=== PATIENT | male | born 1990 | race Caucasian/White ===

== ENCOUNTER 2021-07-04 18:14 | Emergency (ER) | payer BC, SELFPAY ==
[2021-07-04 19:14] VITALS: BP 151/89; PULSE 76; RESP 16; TEMP 36.3; O2SAT 98; BMI 37.1
--- NOTE | 2021-07-04 19:40 | HMH.EDUTC ---
[facility] [place] Disposition Clinical Impression: Left arm cellulitis Disposition: Home, Self-Care Condition on Discharge: Good Instructions: DI for Cellulitis -- Adult Additional Instructions: Keep the affected area clean and dry. Follow up with your regular doctor within 2 days for a recheck of this wound. Take the antibiotics as directed and apply the topical antibiotics as directed. Apply warm wet compresses to the affected area three or four times per day. GO TO THE ER FOR ANY WORSENING SYMPTOMS Prescriptions: Sulfamethoxazole/Trimethoprim [Bactrim DS tablet] 1 each PO BID 10 Days #20 tab Transmission Status: Received by [id number] Mupirocin [Bactroban 2% Ointment 22gm tube] 1 applicatio TP TID 7 Days #1 gm Transmission Status: Received by [id number] cephALEXin [cephALEXin 500mg capsule] 500 mg PO Q6H 10 Days #40 cap Transmission Status: Received by [facility] predniSONE [Deltasone 10mg tablet] 10 mg PO BID 3 Days #6 tab Transmission Status: Received by [id number] Referrals: Austin Pabon MD [Primary Care Provider] - Time of Disposition: 19:50 Medical Decision Making - Medical Records Medical records reviewed: No: I reviewed the patient's medical records. - Russel Inquiry Pt receiving controlled substance: No Vital Signs: 07/04/21 19:14 07/04/21 19:50 Temperature 97.4 F L 97.4 F L Temperature Source Oral Pulse Rate 76 Pulse Rate [Left] 76 Respiratory Rate 16 16 Blood Pressure 151/89 H Blood Pressure [Right Arm] 151/89 H Blood Pressure Mean [Right Arm] 109 02 Sat by Pulse Oximetry 98 Orders (Tests/Meds): ED MEDICATIONS Discontinued Medications Generic Name Dose Route Start Last Admin Trade Name Freq PRN Reason Stop Dose Admin Cephalexin HCl 500 mg 07/04/21 19:45 07/04/21 19:49 Cephalexin 500mg Capsule PO 07/04/21 19:46 500 mg ONCE ONE Administration Prednisone 20 mg 07/04/21 19:44 07/04/21 19:49 Prednisone 20mg Tab PO 07/04/21 19:45 20 mg ONCE ONE Administration [facility] [place] HPI - General Stated complaint: left underarm tricep rash and pain Time Seen by Provider: 07/04/21 19:40 Mode of Arrival: Ambulatory Source of Information: Patient Limitations: No Limitations Description of Symptoms (Recalled from Triage Doc. by RN): pt states he has a rash on L tricep that is painful. pt has a red, raised warm area that is one large blotch. HEENT Symptoms (Recalled from RN notes): No Resp Symptoms (Recalled from RN notes): No Skin Symptoms (Recalled from RN notes): Yes (rash on L tricep) MS Symptoms (Recalled from RN notes): No Functional Status (Recalled from RN notes): na - History of Present Illness Provider Complaint: He states that since yesterday he has had a red area on the back of his left arm. He states that he has not had any stings or bug bites. He feels fine and denies any fever or chills. He denies any injury. - Related Data Previous Rx's Medication Instructions Recorded Mupirocin [Bactroban 2% Ointment 1 applicatio TP TID 7 Days #1 gm 07/04/21 22gm tube] Sulfamethoxazole/Trimethoprim 1 each PO BID 10 Days #20 tab 07/04/21 [Bactrim DS tablet] cephALEXin [cephALEXin 500mg 500 mg PO Q6H 10 Days #40 cap 07/04/21 capsule] predniSONE [Deltasone 10mg tablet] 10 mg PO BID 3 Days #6 tab 07/04/21 Allergies Allergy/AdvReac Type Severity Reaction Status Date / Time No Known Allergies Allergy Verified 03/11/18 02:43 - Worker's Comp Is this a Worker's Comp case?: No [facility] History - Hepatitis A Screen Drug use history?: No High risk sexual behaviors?: No History of sexually transmitted infection?: No Currently employed?: No Childcare worker?: No Do you have indoor plumbing?: Yes Do you have electricity?: Yes Attestation statement:: This patient has been screened for Hepatitis A risk factors. I have reviewed the patient's past medical history: Yes Medical History:
[2021-07-04 19:50] VITALS: BP 151/89; PULSE 76; RESP 16; TEMP 36.3
== END 2021-07-04 20:10 | disposition home or self-care (01) ==
PROVIDERS: Emergency Provider Nurse Practitioner Family; PCP Family Medicine
DX: L03.114 Cellulitis of left upper limb (principal)
CPT/HCPCS: 99202; G0463

== ENCOUNTER → 2022-12-24 13:16 | Outpatient (CLI) | payer BC, SELFPAY ==
[2022-12-24 12:57] LABS: Basophils # 0.1 K/mm3 (0-0.2); Basophils % 0.9 % (0.1-2.0); Eosinophils # 0.3 K/mm3 (0.0-0.4); Eosinophils % 2.9 % (0.1-12.0); Hemoglobin 16.2 g/dL (14.1-18.0); Lymphocytes # 3.2 K/mm3 (0.7-4.5); Lymphocytes % 32.5 % (10-50); Mean Corpuscular HGB Conc 33.8 g/dL (31.8-35.4); Mean Corpuscular Hemoglobin 31.1 pg (27.0-31.2); Mean Platelet Volume 7.9 fl (7.4-10.4); Monocytes # 0.7 K/mm3 (0.1-1.0); Monocytes % 6.9 % (1.7-9.3); Neutrophils # 5.7 K/mm3 (1.8-7.8); Neutrophils % 56.8 % (37.0-80.0); Platelet Count 357 K/mm3 (142-424); Red Blood Count 5.22 M/mm3 (4.60-6.20); Red Cell Distribution Width 13.1 % (11.5-17.5)
[2022-12-24 12:59] LABS: Alanine Aminotransferase 60 U/L (12-78); Albumin Level 4.5 g/dl (3.5-5.0); Albumin/Globulin Ratio 1.5 (1.1-1.8); Alkaline Phosphatase 91 U/L (38-126); Anion Gap 13.3 mEq/L (5-15); Aspartate Amino Transferase 38 U/L (17-59); Bilirubin,Total 0.7 mg/dl (0.2-1.3); Blood Urea Nitrogen 20 mg/dl (9-20); Calcium 9.6 mg/dl (8.4-10.2); Carbon Dioxide 28 mmol/L (22.0-30.0); Chloride 101 mmol/L (98-107); Chol/HDL Ratio 4.5 (1-3.5); Cholesterol 262 mg/dl (140-200); Estimated Glomerular Filt Rate 111 ml/min (>60); GFR (African American) 135 ML/MIN (>60); Glucose 92 mg/dl (74-100); HDL Cholesterol 58 mg/dl (40-60); Potassium 4.3 mmoL/L (3.5-5.1); Sodium 138 mmol/L (136-145); Total Protein,Serum 7.5 g/dl (6.3-8.2); Triglycerides 163 mg/dl (30-150); VLDL Cholesterol 33 mg/dL (0-40)
[2022-12-24 13:17] LABS: 25-OH Vitamin D, Total 15.7 ng/mL (30-100)
[2022-12-24 13:21] LABS: Direct LDL Cholesterol 162.63 mg/dL (100-129)
[2022-12-24 13:31] LABS: Thyroid Stimulating Hormone 1.16 uIU/mL (0.465-4.68)
[2022-12-24 13:33] LABS: Hemoglobin A1C 5.1 % (4.0-6.0)
[2022-12-24 13:49] LABS: Vitamin B12 461 pg/mL (239-931)
[2022-12-25 08:22] LABS: Testosterone,Total 380 ng/dL (264-916)
== END ==
PROVIDERS: PCP Physician Assistant; Visit Provider Physician Assistant
DX: R53.83 Other fatigue (principal); E55.9 Vitamin D deficiency, unspecified; E66.9 Obesity, unspecified; Z68.38 Body mass index [BMI] 38.0-38.9, adult; Z79.899 Other long term (current) drug therapy; R06.89 Other abnormalities of breathing
CPT/HCPCS: 80053; 80061; 82306; 82607; 83036; 84403; 84443; 85025

== ENCOUNTER → 2023-02-15 10:43 | Outpatient (CLI) | payer BC, SELFPAY ==
[2023-02-15 11:24] LABS: Basophils # 0.1 K/mm3 (0-0.2); Basophils % 0.8 % (0.1-2.0); Eosinophils # 0.3 K/mm3 (0.0-0.4); Eosinophils % 3.3 % (0.1-12.0); Hematocrit 45.8 % (42.0-52.0); Hemoglobin 15.4 g/dL (14.1-18.0); Lymphocytes # 3.2 K/mm3 (0.7-4.5); Lymphocytes % 34.6 % (10-50); Mean Corpuscular HGB Conc 33.7 g/dL (31.8-35.4); Mean Corpuscular Hemoglobin 30.3 pg (27.0-31.2); Mean Corpuscular Volume 89.8 fl (80-94); Mean Platelet Volume 7.6 fl (7.4-10.4); Monocytes # 0.7 K/mm3 (0.1-1.0); Monocytes % 7.5 % (1.7-9.3); Neutrophils % 53.8 % (37.0-80.0); Platelet Count 313 K/mm3 (142-424); Red Blood Count 5.09 M/mm3 (4.60-6.20); Red Cell Distribution Width 12.8 % (11.5-17.5); White Blood Count 9.3 K/mm3 (4.8-10.8)
[2023-02-15 12:03] LABS: Anion Gap 14.2 mEq/L (5-15); Blood Urea Nitrogen 17 mg/dl (9-20); Calcium 9.3 mg/dl (8.4-10.2); Carbon Dioxide 28 mmol/L (22.0-30.0); Chloride 104 mmol/L (98-107); Estimated Glomerular Filt Rate 111 ml/min (>60); GFR (African American) 135 ML/MIN (>60); Glucose 90 mg/dl (74-100); Potassium 4.2 mmoL/L (3.5-5.1); Sodium 142 mmol/L (136-145)
== END ==
PROVIDERS: Visit Provider Surgery
DX: Z01.812 Encounter for preprocedural laboratory examination (principal); L72.3 Sebaceous cyst
CPT/HCPCS: 36415; 80048; 85025

== ENCOUNTER 2023-02-28 07:12 | Day surgery (SDC) | payer BC, SELFPAY ==
[2023-02-24 13:04] VITALS: BMI 39.0
[2023-02-28] VITALS (10 sets, daily range): BP systolic 140–157; BP diastolic 80–103; PULSE 73–90; RESP 15–18; TEMP 36.1–36.6; O2SAT 94–99
--- NOTE | 2023-02-28 07:51 | EXP.ANES.CKL ---
[facility] Disclaimer: The information contained in this section may have been updated after the patient was seen, as this information can be updated by other users. Medical History Asthma History of COVID-19 Hyperlipidemia Surgical History No significant past surgical history Family History Other No significant family history Social History Smoking Status: Never smoker alcohol intake: current substance use type: denies use current occupational status: employed Travel in the last 8 weeks: None [facility] Anesthesia Checklist Patient Identification Patient Identification: Arm Band and Verbal (Name & ) Structural Data Admitted From: Home Planned Operative Procedure/s: Excision of sebaceous cyst Consent for Planned Operative Procedure(s) Verified: Yes NPO Status Verified Time NPO: 00:00 Chart Verification Results Verified: CBC and BMP Additional verifications Anesthesia Reactions: No Hx Blood Transfusions: No Blood Transfusion Reaction: No Airway Assessment C-Spine Mobility Assessed: Yes TMJ Mobility Assessed: Yes Dentition: Good Dentition Neurological Assessment Level of Consciousness: Awake Hx Seizures: No Numbness or tingling in extremities: No Anesthesia Plan Anesthesia Risk discussed: Yes Anesthesia Plan: Verified ASA Class: II Anesthesia Type: General
--- NOTE | 2023-02-28 09:43 | EXP.OP.NOTE ---
Date of procedure: 02/28/23 Pre-op Diagnosis:: Sebaceous cyst on the back Post-op Diagnosis:: Same Procedure performed:: Excision of sebaceous cyst from the back. Excisional length 3.0 cm with intermediate complexity closure Surgeon:: John Mahoney MD PAY STATION DEPARTMENT MANAGER:: Duong Ayala Anesthesia: LMA Estimated blood loss (mL): 10 Operative findings:: Consistent with noninfected sebaceous cyst Operative note:: Patient was taken the operating room. He was given preoperative intravenous antibiotics. Anesthesia was induced via LMA. He was positioned in right lateral decubitus position. The area was prepped and draped in the standard surgical fashion. Skin was marked with a skin marker for planned elliptical incision as there was some central area of fluctuance at the site of the skin punctum. Incision was made. The superficial cyst wall was rather thin and friable and likely previously ruptured. There was some unavoidable spillage of caseous keratin debris which was foul-smelling but noninfected. With careful dissection the cyst capsule was able to be resected with disruption at the superficial point with the overlying skin ellipse. Wound was irrigated. Hemostasis was achieved with electrocautery. Additional local anesthetic was infiltrated. Deep dermal tissue was reapproximated with interrupted 3-0 Vicryl. Skin was closed with interrupted 4-0 nylon. Clean dry sterile dressing was applied. Condition: stable Disposition: PACU Complications:: None immediate
--- NOTE | 2023-02-28 09:48 | EXP.ANES.I ---
[facility] Anesthesia Record Part I Anesthesia Record I Intake, IV Amount: 800 Estimated blood loss (mL): 5 Urine output (mL): 0 Blood Products used (#): none Blood Pressure: 147/80 SaO2: 94 Pulse Rate: 90 Respiratory Rate: 16 Temperature: 97.6 F Patient is:: Drowsy and Stable Stable to PACU at:: 09:45
--- NOTE | 2023-02-28 13:59 | EXP.ANES.II ---
[facility] Anesthesia Record Part II Anesthesia Record Part II Discharge Time: 10:15 Destination: Surgical Day Care (OP Surgery) PACU nurse assessment reviewed?: Yes Patient Condition:: Good Anesthesia Complications:: None Swallowing reflex intact?: Yes Cyanosis?: No Blood Pressure: 140/91 Pulse Rate: 78 Temperature: 97.9 F Mental Status: Alert & Oriented Pain level:: 0 Nausea and/or vomitting:: None Intake, IV Amount: 0
== END 2023-02-28 10:46 | disposition home or self-care (01) ==
PROVIDERS: Visit Provider Surgery
PROC: (CPT 11403; principal; 2023-02-28 09:00)
DX: L72.0 Epidermal cyst (principal)
CPT/HCPCS: 11403; 12032; 96374; J2405

== ENCOUNTER 2023-10-20 12:34 | Outpatient (CLI) | payer BC, SELFPAY ==
[2023-10-20 12:46] LABS: Basophils # 0.1 K/mm3 (0-0.2); Basophils % 0.6 % (0.1-2.0); Eosinophils # 0.4 K/mm3 (0.0-0.4); Eosinophils % 4.7 % (0.1-12.0); Hematocrit 49.2 % (42.0-52.0); Hemoglobin 16.1 g/dL (14.1-18.0); Lymphocytes # 3.5 K/mm3 (0.7-4.5); Lymphocytes % 39.3 % (10-50); Mean Corpuscular HGB Conc 32.6 g/dL (31.8-35.4); Mean Corpuscular Hemoglobin 31.4 pg (27.0-31.2); Mean Platelet Volume 8.1 fl (7.4-10.4); Monocytes # 0.5 K/mm3 (0.1-1.0); Monocytes % 5.7 % (1.7-9.3); Neutrophils # 4.4 K/mm3 (1.8-7.8); Neutrophils % 49.7 % (37.0-80.0); Platelet Count 310 K/mm3 (142-424); Red Blood Count 5.13 M/mm3 (4.60-6.20); Red Cell Distribution Width 13.3 % (11.5-17.5); White Blood Count 8.8 K/mm3 (4.8-10.8)
[2023-10-20 13:28] LABS: Alanine Aminotransferase 38 U/L (12-78); Albumin Level 4.2 g/dl (3.5-5.0); Albumin/Globulin Ratio 1.7 (1.1-1.8); Alkaline Phosphatase 80 U/L (38-126); Anion Gap 10.8 mEq/L (5-15); Aspartate Amino Transferase 30 U/L (17-59); Bilirubin,Total 0.9 mg/dl (0.2-1.3); Blood Urea Nitrogen 14 mg/dl (9-20); Calcium 9.5 mg/dl (8.4-10.2); Carbon Dioxide 27 mmol/L (22.0-30.0); Chloride 104 mmol/L (98-107); Chol/HDL Ratio 4.7 (1-3.5); Cholesterol 242 mg/dl (140-200); Estimated Glomerular Filt Rate 111 ml/min (>60); GFR (African American) 134 ML/MIN (>60); Globulin 2.5 g/dL (1.3-3.2); Glucose 87 mg/dl (74-100); HDL Cholesterol 51 mg/dl (40-60); Potassium 3.8 mmoL/L (3.5-5.1); Sodium 138 mmol/L (136-145); Total Protein,Serum 6.7 g/dl (6.3-8.2); Triglycerides 118 mg/dl (30-150); VLDL Cholesterol 24 mg/dL (0-40)
[2023-10-20 13:39] LABS: Direct LDL Cholesterol 135.98 mg/dL (100-129)
[2023-10-20 13:47] LABS: 25-OH Vitamin D, Total 27.3 ng/mL (30-100)
[2023-10-20 13:59] LABS: Thyroid Stimulating Hormone 2.13 uIU/mL (0.465-4.68)
[2023-10-20 14:18] LABS: Vitamin B12 645 pg/mL (239-931)
== END 2023-10-20 23:59 ==
LOC: LAB.DROPOF 12:34
PROVIDERS: PCP Family Medicine; Visit Provider Family Medicine
DX: E55.9 Vitamin D deficiency, unspecified (principal); E78.5 Hyperlipidemia, unspecified; F41.9 Anxiety disorder, unspecified; R07.9 Chest pain, unspecified; Z79.899 Other long term (current) drug therapy
CPT/HCPCS: 80053; 80061; 82306; 82607; 84443; 85025

== ENCOUNTER 2024-02-07 09:56 | Outpatient (CLI) | payer BC, SELFPAY ==
[2024-02-07 18:11] LABS: Basophils # 0.1 K/mm3 (0-0.2); Basophils % 0.9 % (0.1-2.0); Eosinophils # 0.4 K/mm3 (0.0-0.4); Eosinophils % 3.7 % (0.1-12.0); Hematocrit 48.1 % (42.0-52.0); Hemoglobin 15.9 g/dL (14.1-18.0); Lymphocytes # 2.1 K/mm3 (0.7-4.5); Mean Corpuscular HGB Conc 33.1 g/dL (31.8-35.4); Mean Corpuscular Hemoglobin 31.2 pg (27.0-31.2); Mean Corpuscular Volume 94.2 fl (80-94); Mean Platelet Volume 8.7 fl (7.4-10.4); Monocytes # 0.5 K/mm3 (0.1-1.0); Monocytes % 5.4 % (1.7-9.3); Neutrophils # 6.5 K/mm3 (1.8-7.8); Neutrophils % 68.1 % (37.0-80.0); Platelet Count 296 K/mm3 (142-424); Red Cell Distribution Width 13.3 % (11.5-17.5); White Blood Count 9.6 K/mm3 (4.8-10.8)
[2024-02-07 18:35] LABS: Alanine Aminotransferase 35 U/L (12-78); Albumin Level 4.5 g/dl (3.5-5.0); Albumin/Globulin Ratio 1.7 (1.1-1.8); Alkaline Phosphatase 75 U/L (38-126); Anion Gap 15.1 mEq/L (5-15); Aspartate Amino Transferase 29 U/L (17-59); Bilirubin,Total 0.7 mg/dl (0.2-1.3); Blood Urea Nitrogen 14 mg/dl (9-20); Calcium 9.5 mg/dl (8.4-10.2); Carbon Dioxide 27 mmol/L (22.0-30.0); Chloride 103 mmol/L (98-107); Chol/HDL Ratio 4.2 (1-3.5); Cholesterol 211 mg/dl (140-200); Estimated Glomerular Filt Rate 111 ml/min (>60); GFR (African American) 134 ML/MIN (>60); Globulin 2.6 g/dL (1.3-3.2); Glucose 89 mg/dl (74-100); HDL Cholesterol 50 mg/dl (40-60); Potassium 4.1 mmoL/L (3.5-5.1); Sodium 141 mmol/L (136-145); Total Protein,Serum 7.1 g/dl (6.3-8.2); Triglycerides 131 mg/dl (30-150); VLDL Cholesterol 26 mg/dL (0-40)
[2024-02-07 18:46] LABS: Direct LDL Cholesterol 124.37 mg/dL (100-129); Erythrocyte Sedimentation Rate 5 mm/hr (0-15)
[2024-02-07 18:47] LABS: 25-OH Vitamin D, Total 31.5 ng/mL (30-100)
[2024-02-07 19:04] LABS: Thyroid Stimulating Hormone 0.79 uIU/mL (0.465-4.68)
[2024-02-07 20:37] LABS: Vitamin B12 755 pg/mL (239-931)
[2024-02-07 21:33] LABS: Folate 7.11 ng/mL
== END 2024-02-07 23:59 | disposition home or self-care (01) ==
LOC: LAB.DROPOF 02-08 09:56
PROVIDERS: PCP Internal Medicine; Visit Provider Internal Medicine
DX: E78.5 Hyperlipidemia, unspecified (principal); R53.83 Other fatigue; E55.9 Vitamin D deficiency, unspecified; Z68.34 Body mass index [BMI] 34.0-34.9, adult; E66.9 Obesity, unspecified
CPT/HCPCS: 80050; 80053; 80061; 82306; 82607; 82746; 83036; 84443; 85025; 85651

== ENCOUNTER 2025-02-04 15:55 | Outpatient (CLI) | payer BC, SELFPAY ==
[2025-02-04 18:10] LABS: Basophils # 0.1 K/mm3 (0-0.2); Basophils % 1.2 % (0.1-2.0); Eosinophils # 0.4 Kmm3 (0.0-0.4); Eosinophils % 4.3 % (0.1-12.0); Hematocrit 44.7 % (42.0-52.0); Hemoglobin 14.9 g/dL (14.1-18.0); Immature Granulocytes # 0.04 10^3uL; Immature Granulocytes % 0.5 %; Lymphocytes # 2.7 K/mm3 (0.7-4.5); Lymphocytes % 31.1 % (10-50); Mean Corpuscular HGB Conc 33.3 g/dL (31.8-35.4); Mean Corpuscular Hemoglobin 30.5 pg (27.0-31.2); Mean Corpuscular Volume 91.4 fl (80-94); Mean Platelet Volume 10.1 fl (7.4-10.4); Monocytes # 0.9 K/mm3 (0.1-1.0); Monocytes % 9.9 % (1.7-9.3); Neutrophils # 4.6 K/mm3 (1.8-7.8); Nucleated Red Blood Cells # 0 10^3/uL; Nucleated Red Blood Cells % 0 %; Platelet Count 313 K/mm3 (142-424); Red Blood Count 4.89 M/mm3 (4.60-6.20); Red Cell Distribution Width 12.2 % (11.5-17.5); Red Cell Distribution Width-SD 40.8 fL; White Blood Count 8.6 K/mm3 (4.8-10.8)
[2025-02-04 19:35] LABS: 25-OH Vitamin D, Total 35.6 ng/mL (30-100)
[2025-02-04 20:03] LABS: Alanine Aminotransferase 55 U/L (12-78); Albumin Level 4.4 g/dl (3.5-5.0); Anion Gap 9.2 mEq/L (5-15); Aspartate Amino Transferase 35 U/L (17-59); Bilirubin,Total 0.5 mg/dl (0.2-1.3); Calcium 9.4 mg/dl (8.4-10.2); Carbon Dioxide 26 mmol/L (22.0-30.0); Chloride 106 mmol/L (98-107); Globulin 2.8 g/dL (1.3-3.2); Glucose 85 mg/dl (74-100); Potassium 4.2 mmoL/L (3.5-5.1); Sodium 137 mmol/L (136-145); Total Protein,Serum 7.2 g/dl (6.3-8.2)
[2025-02-04 20:04] LABS: Albumin/Globulin Ratio 1.6 (1.1-1.8); Alkaline Phosphatase 83 U/L (38-126); Chol/HDL Ratio 4.6 (1-3.5); Cholesterol 273 mg/dl (140-200); HDL Cholesterol 59 mg/dl (40-60); Triglycerides 181 mg/dl (30-150); VLDL Cholesterol 36 mg/dL (0-40)
[2025-02-04 20:15] LABS: Direct LDL Cholesterol 183.35 mg/dL (100-129)
[2025-02-04 20:26] LABS: Blood Urea Nitrogen 18 mg/dl (9-20); Estimated Glomerular Filt Rate 96 ml/min (>60); GFR (African American) 116 ML/MIN (>60)
--- OUTSIDE RECORDS SUMMARY | 2025-02-05 14:33 | XMS_ITS | Clinical Summary ---
Author Organization [facility] Address [address] [place] [id number] Phone [email or web address] Care Team Providers Care Early Head Start Teacher Name Role Phone Unavailable Primary Care Provider Unavailabl e Allergies No known active allergies Medications No known medications Active Problems No known active problems Immunizations Immunization Administration Dates Next Due COVID-19 (Pfizer [place] 12 yrs+) (CVX-208) 021,09/18/2020 Social History Tobacco Use Types Packs/Day Years Used Date Smoking Tobacco: Never Assessed Intimate Partner Violence Answer Date R ecorded Insults You Not on file 12/09/2020 Threatens You Not on file 12/09/2020 Screams at You Not on file 12/09/2020 Physically Hurt Not on file 12/09/2020 Intimate Partner Violence Score Not on file 12/09/2020 Stress Answer Date Recorded Stress in your Life Not on file 07/02/2024 Dealing with Stress 3 07/02/2024 Sex and Gender Information Value Date Recorded Sex Assigned at Not on file Legal Sex Male 7:58 AM CDT Gender Identity Not on file Sexual Orientation Not on file Last Filed Vital Signs Vital Sign Reading Time Taken Comments Blood Pressure 125/82 03/22/2018 3:45 PM EDT Pulse 87 03/22/2018 3:45 PM EDT Temperature 37.3 C (99.2 F) 03/22/2018 3:45 PM EDT Respiratory Rate 16 03/22/2018 3:45 PM EDT Oxygen Saturation 99% 03/22/2018 3:45 PM EDT Inhaled Oxygen Concentration - - Weight 88.9 kg (196 lb) 03/22/2018 3:45 PM EDT Height 170.2 cm (5' 7 ) 03/22/2018 3:45 PM EDT Body Mass Index 30.7 03/22/2018 3:45 PM EDT Plan of Treatment Health Maintenance Due Date Last Done Comments Dental Cleaning/Exam 1989 HIV Screening 1989 Hepatitis C Screening 1989 Annual Preventive Exam 2007 Hep B Infection Screening - Triple Screen 2007 Covid-19 Immunization ( season) 2024 08/26/2021, 10/10/2020, 09/18/2020 Influenza Immunization (Season Ended) 2025 Tetanus Diphtheria and Pertussis Immunization (2 - Td or Tdap) 03/11/2028 03/11/2018 Hepatitis B Immunization Completed 000, 04/17/1999, 03/13/1999 HIB Immunization Aged Out No longer e ligible based on patient's age to complete this topic HPV Immunization Aged Out No longer e ligible based on patient's age to complete this topic Hepatitis A Immunization Aged Out No longer eligible based on patient's age to complete this topic Pneumococcal: Ped (0 to 5 Yrs) and At-Risk Member (6 to 64 Yrs) Aged Out No longer eligible b ased on patient's age to complete this topic Polio Immunization Aged Out No longer eligible based on patient's age to complete this topic Varicella Immunization Aged Out No lo nger eligible based on patient's age to complete this topic Insurance OPT OUT NO COPAY NB [address] [id number]
== END 2025-02-04 23:59 | disposition home or self-care (01) ==
LOC: LAB.DROPOF 02-05 14:29
PROVIDERS: PCP Family Medicine; Visit Provider Family Medicine
DX: E66.811 Obesity, class 1 (principal); E78.2 Mixed hyperlipidemia
CPT/HCPCS: 80053; 80061; 82306; 83036; 84443; 85025

== ENCOUNTER 2025-06-07 10:10 | Outpatient (CLI) | payer BC, SELFPAY ==
[2025-06-07 21:48] LABS: Anion Gap 16.4 mEq/L (5-15); Blood Urea Nitrogen 15 mg/dl (9-20); Calcium 9.4 mg/dl (8.4-10.2); Carbon Dioxide 27 mmol/L (22.0-30.0); Chloride 101 mmol/L (98-107); Cholesterol 172 mg/dl (140-200); Creatinine,Serum 0.80 mg/dl (0.66-1.25); Estimated Glomerular Filt Rate 110 ml/min (>60); GFR (African American) 133 ML/MIN (>60); Glucose 86 mg/dl (74-100); HDL Cholesterol 51 mg/dl (40-60); Potassium 4.4 mmoL/L (3.5-5.1); Sodium 140 mmol/L (136-145); Triglycerides 150 mg/dl (30-150)
--- OUTSIDE RECORDS SUMMARY | 2025-06-10 10:21 | XMS_ITS | Clinical Summary ---
Author Organization [facility] Address [address] [place] [phone] Phone [email or web address] Care Team Providers Care Production Engineer Track Name Role Phone Unavailable Primary Care Provider Unavailabl e Allergies No known active allergies Medications No known medications Active Problems No known active problems Immunizations Immunization Administration Dates Next Due COVID-19 (Pfizer [place] 12 yrs+) ([id number]-208) 021,09/18/2020 Social History Tobacco [...] HIV Screening 1989 Hepatitis C Screening 1989 HPV Immunization (1 - Male 3-dose series) 2004 Annual Preventive Exam 2007 Hep B Infection Screening - Triple Screen 2007 Covid-19 Immunization (4 - season) 2025 08/26/2021, 10/10/2020, 09/18/2020 Influenza Immunization (#1) 2025 Tetanus Diphtheria and Pertussis Immunization (2 - Td or Tdap) 03/11/2028 03/11/2018 Hepatitis B Immunization Completed 000, 04/17/1999, 03/13/1999 HIB Immunization Aged Out No longer e ligible based on patient's age to complete this topic Hepatitis A Immunization Aged Out No longer eligible based on patient's age to complete this topic Pneumococcal Immunization Aged Out No longer eligible based on patient's age to complete this topic Polio Immunization Aged Out No longer eligible based on patient's age to complete this topic Varicella Immunization Aged Out No lo nger eligible based on patient's age to complete this topic Insurance OPT OUT NO COPAY NB
== END 2025-06-07 23:59 ==
LOC: LAB.DROPOF 06-10 10:11
PROVIDERS: PCP Family Medicine; Visit Provider Family Medicine
DX: E78.5 Hyperlipidemia, unspecified (principal)
CPT/HCPCS: 80048; 80061